=== PATIENT | male | born 1960 | race Caucasian/White ===

== ENCOUNTER 2019-05-12 06:39 | Day surgery (SDC) | payer MEDICARE ==
[~2019-05-12 06:39] MED LIST: CEFAZOLIN SODIUM 2 GM in DEXTROSE 5%-WATER 100 ML IV PRN
[2019-05-12] MEDS ORDERED: LIDOCAINE 2% INJ (20 MG/ML) 20 ML MDV ONE (06:45)
[2019-05-12] MEDS ORDERED: ONDANSETRON HCL INJ/PF 4 MG/2 ML SDV ONE (06:46)
[2019-05-12] MEDS ORDERED: KETOROLAC TROMETHAMINE 60 MG/2 ML SDV ONE (06:46)
[2019-05-12] MEDS ORDERED: MIDAZOLAM 2 MG/2 ML INJ ONE (06:46)
[2019-05-12] MEDS ORDERED: FENTANYL CITRATE INJ/PF 100 MCG/2 ML AMPUL ONE (06:46)
[2019-05-12] MEDS ORDERED: PROPOFOL INJ 200 MG/20 ML VIAL IV ONE (06:47)
[2019-05-12] MEDS ORDERED: BUPIVACAINE HCL 0.5 % INJ/PF 30 ML SDV ONE (07:08)
[2019-05-12] MEDS ORDERED: LIDOCAINE 1%/EPINEPHRINE INJ 20 ML VIAL ONE (07:08)
[2019-05-12] MEDS ORDERED: ONDANSETRON HCL INJ/PF 4 MG/2 ML SDV IV PRN (07:27)
[2019-05-12] MEDS ORDERED: PROMETHAZINE HCL INJ 25 MG/1 ML VIAL IV PRN (07:27)
[2019-05-12] MEDS ORDERED: FENTANYL CITRATE INJ/PF 100 MCG/2 ML AMPUL IV PRN ×3 (07:27)
[2019-05-12] MEDS ORDERED: OXYCODONE-ACETAMINOPHEN 5-325 MG TABLET PO PRN ×2 (07:27)
[2019-05-12] MEDS ORDERED: DIPHENHYDRAMINE HCL 50 MG/ML VIAL IV PRN (07:27)
[2019-05-12] MEDS ORDERED: MEPERIDINE HCL/PF INJ 25 MG/1 ML DISP.SYRIN IV PRN (07:27)
[2019-05-12] MEDS ORDERED: MORPHINE SULFATE 10 MG/ML INJ IV PRN (07:27)
--- NOTE | 2019-05-12 07:51 | Discharge Summary ---
Discharge Summary (SDC) - Discharge Final Diagnosis: Left medial meniscal tear Date of Surgery: 05/12/19 Discharge Date: 05/12/19 Condition: Good Treatment or Instructions: Weightbearing as tolerated ambulation. Remove compressive wrap on Friday. Underlying OpSite dressing can remain in place until you return to the office. Prescriptions: Oxycodone HCl/Acetaminophen [Percocet 5-325 mg Tablet] 1 tab PO Q6 PRN #40 tablet PRN Reason: Referrals: SCAR CROWLEY MD [Primary Care Provider] - Discharge Diet: As Tolerated, Regular Respiratory Treatments at Home: Deep Breathing/Coughing Discharge Activity: Balance Activity w/Rest, No tub bath Report the Following to Your Physician Immediately: Shortness of Breath, Fever over 101 Degrees, Drainage-Foul Smelling
--- NOTE | 2019-05-12 07:53 | Operative Report ---
Operative Report DATE OF SURGERY: 05/12/19 PREOPERATIVE DIAGNOSIS: Left medial meniscal tear POSTOPERATIVE DIAGNOSIS: Left medial meniscal tear. Left lateral meniscal tear. 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 Grade 1-2 chondral malacia lateral compartment. Intact ACL. 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 Subsequently medial and lateral infrapatellar portals are created for the introduction of arthroscope and debridements mentation. The joint is examined in a systematic fashion findings as above. Using combination of a radiofrequency ablation probe a loop partial lateral meniscectomy was performed from approximately 12:00 to 5:00 on the face of the dial. Using combination mechanical Petersen, mechanical shaver and electric frequency ablation probe a partial medial meniscectomy was performed from proximal 8:00 to 12:00 in the face of the dial. There is a relatively large chondral defect in the medial femoral condyle and this is debrided using a mechanical shaver. There is not underlying bone exposed. At this point instrumentation was removed. The portals reapproximated interrupted nylon. A sterile compressive dressing was applied. The patient's return to the PACU in satisfactory condition.
[2019-05-12] MEDS ORDERED: OXYCODONE-ACETAMINOPHEN 5-325 MG TABLET PO ONE (08:30)
[2019-05-12] MEDS ORDERED: OXYCODONE-ACETAMINOPHEN 5-325 MG TABLET ONE (08:35)
[2019-05-12 09:37] VITALS: BP 128/80
--- NOTE | 2019-05-12 23:48 | EKG REPORT ---
SEVERITY:- NORMAL ECG - SINUS RHYTHM : Confirmed by: Mei Min 12-May-2019 23:46:45
== END 2019-05-12 09:30 | disposition home or self-care (01) ==
LOC: OROUT 06:39
PROVIDERS: ATTEND Orthopaedic Surgery
DX: M23.304 Other meniscus derangements, unspecified medial meniscus, left knee (principal); M23.301 Other meniscus derangements, unspecified lateral meniscus, left knee; M22.42 Chondromalacia patellae, left knee; E66.3 Overweight; Z68.38 Body mass index [BMI] 38.0-38.9, adult
CPT/HCPCS: 93005; 93010; 01400; 29880; J2250; J3490 ×3; J0690; J1885; J3010; A9270; J2405; J7060; J2704; 1400